=== PATIENT | female | born 1950 | race Caucasian/White ===

== ENCOUNTER 2016-09-04 08:53 | Emergency (ER) | payer BC, OTHER ==
[2016-09-04 09:00] VITALS: BP 173/97
--- NOTE | 2016-09-04 09:24 | UC ---
Throat Pain/Nasal Reynold HPI - HPI Summary HPI Summary: 65 y/o female presents to the urgent care c/o of nasal congestion w/ productive cough for the past 1 week. Pt reports her symptoms started w/ the nasal congestion ans sneezing, then cough developed w/ a clear phlegm. Today she feels the cough is worse at night time.Pt has not taking anything to alleviate symptoms. Pt denies fever, SOB, chest pain, N/V/D. Pt states she hasn't taken her BP medication today when told her BP is elevated. - History of Current Complaint Chief Complaint: UCRespiratory Stated Complaint: COUGH,CHEST CONGESTION Time Seen by Provider: 09/04/16 09:01 Hx Obtained From: Patient ?: No Onset/Duration: Gradual Onset, Lasting Days, Still Present Severity: Moderate Pain Intensity: 0 Pain Scale Used: 0-10 Numeric Cough: Productive - clear phlegm Associated Signs & Symptoms: Positive: Sinus Discomfort, Nasal Discharge. Negative: Fever, Vomiting Related History: Seasonal Allergies - Allergies/Home Medications Allergies/Adverse Reactions: Allergies Allergy/AdvReac Type Severity Reaction Status Date / Time Penicillins Allergy Anaphylatic Verified 02/21/12 10:46 Shock PMH/Surg Hx/FS Hx/Imm Hx Previously Healthy: Yes Endocrine History: Diabetes Cardiovascular History: Hypertension Other History Of: Negative For: Anticoagulant Therapy - Surgical History Surgical History: Yes Surgery Procedure, Year, and Place: c/sec x 3 - Family History Known Family History: Positive: Hypertension, Diabetes - Social History Occupation: Employed Part-time Lives: With Family Alcohol Use: None Substance Use Type: None Smoking Status (MU): Never Smoked Tobacco Review of Systems Constitutional: Negative Skin: Negative Eyes: Negative ENT: Nasal Discharge - clear discharge, Sinus Congestion Respiratory: Cough - productic w/ clear phlegm Cardiovascular: Negative Gastrointestinal: Negative Genitourinary: Negative Motor: Negative Neurovascular: Negative Musculoskeletal: Negative Neurological: Negative Psychological: Negative All Other Systems Reviewed And Are Negative: Yes Physical Exam Triage Information Reviewed: Yes Appearance: Well-Appearing, No Pain Distress, Well-Nourished, Obese Vital Signs: Initial Vital Signs Temp 98.5 F 09/04/16 08:57 Pulse 85 09/04/16 08:57 Resp 18 09/04/16 08:57 BP 173/97 09/04/16 08:57 Pulse Ox 99 09/04/16 08:57 Vital Signs Reviewed: Yes Eye Exam: Normal Eyes: Positive: Conjunctiva Clear - PERRLA, EOMI, fundi grossly normal ENT: Positive: Normal ENT inspection, Hearing grossly normal, Pharynx normal, Nasal congestion - edematous nasal mucosa w/ clear nasal discharge, TMs normal. Negative: Tonsillar swelling, Tonsillar exudate Dental Exam: Normal Neck exam: Normal Neck: Positive: Supple, Nontender, No Lymphadenopathy Respiratory Exam: Normal Respiratory: Positive: Chest non-tender, Lungs clear, Normal breath sounds Cardiovascular Exam: Normal Cardiovascular: Positive: RRR, No Murmur, Pulses Normal Abdominal Exam: Normal Abdomen Description: Positive: Nontender, No Organomegaly, Soft. Negative: CVA Tenderness (R), CVA Tenderness (L) Musculoskeletal Exam: Normal Musculoskeletal: Positive: Strength Intact, ROM Intact, No Edema Neurological Exam: Normal Psychological Exam: Normal Skin Exam: Normal Throat Pain/Nasal Course/Dx - Course Course Of Treatment: 65 y/o female presents to the urgent care c/o of nasal congestion w/ productive cough for the past 1 week. HX Obtained. Most likely rhinosinusitis. Pt Rx Loratadine PO and Tessalon tabs to alleviate cough. Advised Pt to use the Nasonex nasal spray she has at home. Increase fluid intake and avoid allergens. - Differential Dx/Diagnosis Differential Diagnosis/HQI/PQRI: Laryngitis, Mononucleosis, Otitis Media, Pharyngitis, Tonsillitis, Other - rhinosinusitis Provider Diagnoses: 1- Rhinosinusitis Discharge - Discharge Plan Condition: Stable Disposition: HOME Prescriptions: Benzonatate CAP* [Tessalon 100 MG CAP*] 100 mg PO TID #15 cap Loratadine & Pseudoephedrine [Loratadine-D 12Hr] 1 tab PO Q12HR #30 tab Patient Education Materials: Rhinosinusitis (ED) Referrals: Loi ARROYO,Rebel Strickland [Primary Care Provider] - 1 Week Additional Instructions: 1- Please take medication as directed and increase fluid intake and rest. 2-Use Nasonex nasal spray and saline nasal spray you have at home to help drain fluid. Take Ibuprofen or Acetaminophen if you develop ROGERS. 3- Your BP is elevated please take your BP medication as soon as you get home, decrease salt in your diet and f/u with your PCP if symptoms do not improve.
== END 2016-09-04 09:35 | disposition home or self-care (01) ==
LOC: UCEAST 08:53
DX: J32.9 Chronic sinusitis, unspecified (principal); E11.9 Type 2 diabetes mellitus without complications; I10 Essential (primary) hypertension; E66.9 Obesity, unspecified; Z88.0 Allergy status to penicillin
CPT/HCPCS: 99212; G0463

== ENCOUNTER 2018-11-07 15:26 | Emergency (ER) | payer MEDICARE, BC ==
[2018-11-07] MEDS ORDERED: Cephalexin CAP* 500 MG PO ONE (18:41)
[2018-11-07] MEDS ORDERED: Aspirin 81 mg CHEW TAB* 81 MG TAB.CHEW PO ONE (18:42)
--- NOTE | 2018-11-07 18:42 | ED ---
Lower Extremity - HPI Summary HPI Summary: Patient is a 67 y/o F presenting to [facility] with complaints of lump at her RLE with redness of the area. She denies pain, SOB, fever, chills, and injury to the leg. She reports Hx of DVT as a teenager. PMHx of HTN, HLD and diabetes endorsed as well. PSHx of . She denies smoking tobacco or alcohol usage. FMHx of HTN, diabetes, HLD reported. Home medications and allergies are reviewed. - History of Current Complaint Chief Complaint: EDExtremityLower Stated Complaint: POSS BLOOD CLOT RIGHT LEG PER PT Time Seen by Provider: 11/07/18 18:11 Hx Obtained From: Patient Onset of Pain: Days, Prior to Arrival Onset/Duration: Days Severity Currently: None Pain Intensity: 0 Pain Scale Used: 0-10 Numeric Timing: Lasting Days Location: Is Discrete @ - RLE Associated Signs And Symptoms: Positive: Swelling, Redness - Allergies/Home Medications Allergies/Adverse Reactions: Allergies Allergy/AdvReac Type Severity Reaction Status Date / Time Cephalosporins Allergy Unknown Verified 11/08/18 13:05 Reaction Details Penicillins Allergy Unknown Verified 11/08/18 13:05 Reaction Details Home Medications: Home Medications Dulaglutide (NF) [Trulicity (NF)] 1.5 mg SUBCUT WEEKLY 11/07/18 [History Confirmed 11/07/18] PMH/Surg Hx/FS Hx/Imm Hx Endocrine/Hematology History: Reports: Hx Diabetes - type II Denies: Hx Anticoagulant Therapy Cardiovascular History: Reports: Hx Hypercholesterolemia, Hx Hypertension - Surgical History Surgery Procedure, Year, and Place: c/sec x 3 Infectious Disease History: No Infectious Disease History: Reports: Hx Hepatitis - hep B 1971 Denies: Hx Clostridium Difficile, Hx Human Immunodeficiency Virus (HIV), Hx of Known/Suspected MRSA, Hx Shingles, Hx Tuberculosis, Hx Known/Suspected VRE, Hx Known/Suspected VRSA, History Other Infectious Disease, Traveled Outside the [place] in Last 30 Days - Family History Known Family History: Positive: Hypertension, Diabetes - Social History Alcohol Use: None Substance Use Type: Reports: None Smoking Status (MU): Never Smoked Tobacco Review of Systems Negative: Fever, Chills Negative: Shortness Of Breath Skin: Other - positive - RLE redness and lump; negative - pain or injury to leg All Other Systems Reviewed And Are Negative: Yes Physical Exam - Summary Physical Exam Summary: VITAL SIGNS: Reviewed. GENERAL: Patient is a well-developed and nourished female who is lying comfortable in the stretcher. Patient is not in any acute respiratory distress. HEAD AND FACE: No signs of trauma. No ecchymosis, hematomas or skull depressions. No sinus tenderness. EYES: PERRLA, EOMI x 2, No injected conjunctiva, no nystagmus. EARS: Hearing grossly intact. Ear canals and tympanic membranes are within normal limits. MOUTH: Oropharynx within normal limits. NECK: Supple, trachea is midline, no adenopathy, no JVD, no carotid bruit, no c- spine tenderness, neck with full ROM. CHEST: Symmetric, no tenderness at palpation. LUNGS: Clear to auscultation bilaterally. No wheezing or crackles. CVS: Regular rate and rhythm, S1 and S2 present, no murmurs or gallops appreciated. ABDOMEN: Soft, non-tender. No signs of distention. No rebound, no guarding, and no masses palpated. Bowel sounds are normal. EXTREMITIES: FROM in all major joints, no edema, no cyanosis or clubbing. NEURO: Alert and oriented x 3. No acute neurological deficits. Speech is normal and follows commands. SKIN: Dry and warm. Redness of the medial aspect of the right calf. Triage Information Reviewed: Yes Vital Signs On Initial Exam: Initial Vitals Temp Pulse Resp BP Pulse Ox 98.4 F 101 18 186/108 96 11/07/18 15:41 11/07/18 15:41 11/07/18 15:41 11/07/18 15:41 11/07/18 15:41 Vital Signs Reviewed: Yes Procedures - Sedation Patient Received Moderate/Deep Sedation with Procedure: No Diagnostics - Vital Signs Vital Signs Temp Pulse Resp BP Pulse Ox 11/07/18 15:41 98.4 F 101 18 186/108 96 - Laboratory Lab Statement: Any lab studies that have been ordered have been reviewed, and results considered in the medical decision making process. - Ultrasound RLE US Ultrasound Interpretation Completed By: Radiologist Summary of Ultrasound Findings: IMPRESSION: 1. No sonographic evidence of deep vein thrombosis. 2. Partially occlusive thrombus at the calf level right great saphenous vein. THIS REPORT WAS REVIEWED BY DR. ROB. Re-Evaluation - Re-Evaluation First Eval Re-Evaluation Time: 18:50 Comment: I discussed all the findings and test results with the patient. Patient was instructed to return to the emergency room immediately if any of the symptoms return worsens. Plan of care was discussed with the patient and understands and agrees. All questions were answered at patient satisfaction. There were no further complaints or concerns. Lung exam before discharge: CTA B/ L. Good air exchange. No wheezing or crackles heard. CVS: S1 and S2 present. No murmurs appreciated. Patient is alert and oriented x 3. Patient is hemodynamically stable. Patient will be discharged home with follow up PCP in the next 2-3 days Lower Extremity Course/Dx - Course Assessment/Plan: Patient is a 67 y/o F presenting to [facility] with complaints of lump at her RLE with redness of the area. She denies pain, SOB, fever, chills, and injury to the leg. She reports Hx of DVT as a teenager. PMHx of HTN, HLD and diabetes endorsed as well. PSHx of . She denies smoking tobacco or alcohol usage. FMHx of HTN, diabetes, HLD reported. Home medications and allergies are reviewed. RLE u/s IMPRESSION: 1. No sonographic evidence of deep vein thrombosis. 2. Partially occlusive thrombus at the calf level right great saphenous vein. I believe that the patient has cellulitis. Therefore the patient was given Keflex. The patient also has a partially occlusive thrombus of the great saphenous vein. therefore the patient was given aspirin. She was recommended to follow with the primary care physician next 2 days. The patient understands and agrees. I discussed all the findings and test results with the patient. Patient was instructed to return to the emergency room immediately if any of the symptoms return worsens. Plan of care was discussed with the patient and understands and agrees. All questions were answered at patient satisfaction. There were no further complaints or concerns. Lung exam before discharge: CTA B/L. Good air exchange. No wheezing or crackles heard. CVS : S1 and S2 present. No murmurs appreciated. Patient is alert and oriented x 3. Patient is hemodynamically stable. Patient will be discharged home with follow up PCP in the next 2-3 days - Diagnoses Provider Diagnoses: Cellulitis Discharge ED - Sign-Out/Discharge Documenting (check all that apply): Patient Departure - discharge - Discharge Plan Condition: Stable Disposition: HOME Prescriptions: Cephalexin CAP* [Keflex CAP*] 500 mg PO QID #40 cap Patient Education Materials: Cellulitis (ED) Referrals: Rebel Monsivais PA [Primary Care Provider] - 3 Days Additional Instructions: PLEASE RETURN TO ED FOR ANY NEW OR WORSENING SYMPTOMS. PLEASE FOLLOW UP WITH YOUR PRIMARY CARE PHYSICIAN WITHIN THREE DAYS. - Billing Disposition and Condition Condition: STABLE Disposition: Home - Attestation Statements Document Initiated by Scribe: Yes Documenting Scribe: CHRIS CISNEROS Provider For Whom Effie is Documenting (Include Credential): ANDERS ROB MD Scribe Attestation: ICHRIS, scribed for ANDERS ROB MD on 11/09/18 at 1806. Scribe Documentation Reviewed: Yes Provider Attestation: The documentation as recorded by the CHRIS beckett accurately reflects the service I personally performed and the decisions made by me, ANDERS ROB MD Status of Scribe Document: Viewed
[2018-11-07 19:05] VITALS: BP 132/103
--- NOTE | 2018-11-08 13:13 | ED ---
Imaging and Labs Follow Up Follow Up Type: Other - [facility] pharmacist calls and states pt has allergy to cephalosporins and penicillin (cephalosporin allergy not recorded in ED list) Other Patient Communication/Plan: Pt being treated for cellulitis. Advised pharmacist at [facility] [place] to not fill the cephalexin, and to substitute Clindamycin 300mg po qid x 10 days #40 with no refills. Minerva, zinc furnace charger nurse added cephalosporin to pt's allergy of penicillin listed in the [facility] allergy list. Titi Morales MD 11/08/17 [id number]. Provider Diagnoses: Cellulitis
== END 2018-11-07 19:10 | disposition home or self-care (01) ==
LOC: ED 15:26
DX: L03.113 Cellulitis of right upper limb (principal); I82.4Z1 Acute embolism and thrombosis of unspecified deep veins of right distal lower extremity; E11.21 Type 2 diabetes mellitus with diabetic nephropathy; Z79.4 Long term (current) use of insulin; I10 Essential (primary) hypertension; Z86.718 Personal history of other venous thrombosis and embolism; Z88.1 Allergy status to other antibiotic agents; Z88.0 Allergy status to penicillin
CPT/HCPCS: 99282; A9270-GY